=== PATIENT | female | born 1980 | race Caucasian/White ===

== ENCOUNTER 2017-07-25 09:30 | Emergency (ER) | payer MEDICAID ==
[~2017-07-25] VITALS: Ht 144.8 cm; Wt 52.2 kg
--- NOTE | 2017-07-25 09:48 | NUR ---
Dr. Mckeon at the bedside with the pt for MSE.
[2017-07-25] MEDS ORDERED: PROCHLORPERAZINE EDISYLATE 10 MG/2 ML VIAL IV ONE (10:00)
[2017-07-25] MEDS ORDERED: IV NORMAL SALINE 1,000 ML IV ONE (10:00)
[2017-07-25] MEDS ORDERED: ACETAMINOPHEN 650 MG/20.3 ML LIQUID UDC PO ONE (10:00)
[2017-07-25] MEDS ORDERED: ACETAMINOPHEN 650 MG/20.3 ML LIQUID UDC ONE (10:21)
[2017-07-25] MEDS ORDERED: PROCHLORPERAZINE EDISYLATE 10 MG/2 ML VIAL ONE (10:22)
--- NOTE | 2017-07-25 11:17 | NUR ---
Patient discharged to home in stable conditon. Written and verbal after care instructions given. Patient verbalizes understanding of instructions.
[2017-07-25 11:29] LABS: *URINE HCG, QUAL NEGATIVE (NEGATIVE)
== END 2017-07-25 11:15 | disposition home or self-care (01) ==
LOC: ER 09:30
DX: R51 Headache (principal); I45.10 Unspecified right bundle-branch block
CPT/HCPCS: 84703; 93005; A4663; J0780; J7030